=== PATIENT | female | born 1940 | race Caucasian/White ===

== ENCOUNTER → 2017-11-26 | Outpatient (CLI) | payer MEDICARE, OTHER ==
[2017-11-26 19:23] LABS: Adenovirus F 40/41 Not Detected (NOT DETECT); Astrovirus Not Detected (NOT DETECT); Campylobacter Sp Not Detected (NOT DETECT); Cryptosporidium Not Detected (NOT DETECT); Cyclospora Cayetanensis Not Detected (NOT DETECT); E. Coli O157 Not Detected (NOT DETECT); Entamoeba Histolytica Not Detected (NOT DETECT); Enteroaggregative E. coli-EAEC Not Detected (NOT DETECT); Enteropathogenic E. coli-EPEC Not Detected (NOT DETECT); Enterotoxigenic E. coli-ETEC Not Detected (NOT DETECT); Giardia Lamblia Not Detected (NOT DETECT); Norovirus GI/GII Not Detected (NOT DETECT); Plesiomonas Shigelloides Not Detected (NOT DETECT); Rotavirus A Not Detected (NOT DETECT); Salmonella Sp Not Detected (NOT DETECT); Sapovirus Not Detected (NOT DETECT); Shiga Toxin-prod E. coli-STEC Not Detected (NOT DETECT); Shigella/Enteroin E. coli-EIEC Not Detected (NOT DETECT); Vibrio Cholerae Not Detected (NOT DETECT); Vibrio Sp Not Detected (NOT DETECT); Yersinia Enterocolitica Not Detected (NOT DETECT)
== END ==
LOC: LAB 16:00
PROVIDERS: Nurse Practitioner
DX: R10.84 Generalized abdominal pain (principal)
CPT/HCPCS: 87507

== ENCOUNTER 2020-09-10 14:56 | Emergency (ER) | payer MEDICARE, OTHER ==
[~2020-09-10] VITALS: Ht 167.6 cm; Wt 92.1 kg
[2020-09-10] MEDS ORDERED: EUTHYROX150 MC1 PO (15:44)
[2020-09-10] MEDS ORDERED: Ventolin/Prove6.7 GM INH (15:44)
[2020-09-10] MEDS ORDERED: MONT10T PO (15:45)
[2020-09-10] MEDS ORDERED: FLUT.05NI (15:46)
[2020-09-10] MEDS ORDERED: OMEP20ER PO (15:46)
[2020-09-10] MEDS ORDERED: FUROSEMIDE40 MG PO (15:46)
[2020-09-10] MEDS ORDERED: K-Dur 20 meq T20 MEQ PO (15:47)
== END 2020-09-10 16:20 | disposition home or self-care (01) ==
LOC: ER 14:56
DX: R00.1 Bradycardia, unspecified (principal); J44.9 Chronic obstructive pulmonary disease, unspecified; E03.9 Hypothyroidism, unspecified; K21.9 Gastro-esophageal reflux disease without esophagitis; Z88.0 Allergy status to penicillin; Z79.899 Other long term (current) drug therapy
CPT/HCPCS: 93005; 93010; 99283-25; A9270

== ENCOUNTER 2020-12-03 15:35 | Emergency (ER) | payer OTHER ==
[~2020-12-03] VITALS: Ht 165.1 cm; Wt 93.0 kg
[~2020-12-03 15:35] MED LIST: EUTHYROX150 MC1 PO; FLUT.05NI; FUROSEMIDE40 MG PO; K-Dur 20 meq T20 MEQ PO; MONT10T PO; OMEP20ER PO; Ventolin/Prove6.7 GM INH
[2020-12-03 16:11] LABS: BASOPHILS ABSOLUTE AUTO 0.04 K/mm3 (0.00-0.23); BASOPHILS PERCENT AUTO 1 % (0-2); EOSINOPHILS ABSOLUTE AUTO 0.15 K/mm3 (0.00-0.68); EOSINOPHILS PERCENT AUTO 2 % (0-6); Hematocrit 39.4 % (33.0-51.0); Hemoglobin 13.1 g/dL (11.5-16.0); IMMATURE GRAN ABSOLUTE AUTO 0.02 K/mm3 (0.00-0.10); IMMATURE GRAN PERCENT AUTO 0 % (0-1); LYMPHOCYTES ABSOLUTE AUTO 3.33 K/mm3 (0.84-5.20); LYMPHOCYTES PERCENT AUTO 46 % (21-46); MONOCYTES ABSOLUTE AUTO 0.46 K/mm3 (0.16-1.47); MONOCYTES PERCENT AUTO 6 % (4-13); Mean Corpuscular HGB 35.2 pg (26.0-34.0); Mean Corpuscular HGB Conc 33.2 g/dL (31.5-36.5); Mean Corpuscular Volume 106 fL (80-100); Mean Platelet Volume 11.7 fL (9.1-12.4); NEUTROPHILS ABSOLUTE AUTO 3.32 K/mm3 (1.96-9.15); NEUTROPHILS PERCENT AUTO 45 % (41-73); NRBC ABSOLUTE 0.02 K/mm3 (0.00-0.02); NRBC Auto 0.3 /100 WBC (0.0-0.2); Platelet Count 176 K/mm3 (150-400); RDW Coefficient Variation 13.5 % (11.7-14.2); RDW Standard Deviation 52.5 fL (35.1-46.3); Red Blood Cell Count 3.72 M/mm3 (3.80-5.20); White Blood Cell Count 7.32 K/mm3 (4.00-11.30)
[2020-12-03 16:36] LABS: Alanine Aminotransfer (ALT/SGP 31 U/L (12-78); Albumin, Blood 3.6 g/dL (3.4-5.0); Alk Phos 88 U/L (50-136); Anion Gap 8 mmol/L (6-16); Aspartate Aminotrans (AST/SGOT 24 U/L (12-37); Bilirubin, Total 0.3 mg/dL (0.1-1.0); Blood Urea Nitrogen 32 mg/dL (8-24); Bun/Creatinine Ratio 24.6 (12.0-20.0); CO2, Blood 24 mmol/L (21-32); Chloride, Blood 112 mmol/L (98-108); Globulin, Blood 3.7 g/dL (2.2-4.0); Glomerular Filtration Rate 42 (60-); Glucose, Blood 93 mg/dL (70-99); Potassium, Blood 4.1 mmol/L (3.5-5.5); Sodium, Blood 144 mmol/L (136-145); Total Protein, Blood 7.3 g/dL (6.4-8.2); Troponin I <0.015 ng/mL (0.000-0.040)
[2021-01-22] MEDS ORDERED: Vitamin B-121000 MCG PO (13:17)
== END 2020-12-03 19:14 | disposition home or self-care (01) ==
LOC: ER 15:35
PROVIDERS: Physician Assistant
DX: I49.1 Atrial premature depolarization (principal); Z88.0 Allergy status to penicillin; Z79.899 Other long term (current) drug therapy; J44.9 Chronic obstructive pulmonary disease, unspecified
CPT/HCPCS: 36415; 71045; 80053; 84443; 84484; 85025; 93005; 93010; 99285-25

== ENCOUNTER 2021-01-23 11:46 | Day surgery (SDC) | payer OTHER ==
[~2021-01-23] VITALS: Ht 167.6 cm; Wt 102.0 kg
[~2021-01-23 11:46] MED LIST changes: +Vitamin B-121000 MCG PO
--- NOTE | 2021-01-23 19:28 | NUR ---
PT ARRIVED AT [facility] FROM [facility] [place], S/P DUAL CHAMBER PACER INSERTION. WOUND SITE IS C/D/I, PRESSURE DRESSING IN PLACE. NO SIGNS OF SWELLING OR DRAINAGE. ICE PACK APPLIED, SLING IN PLACE. PT REMINDED NOT TO LIFT LEFT ARM. ORIENTED TO ROOM, CALL LIGHT IN REACH. PRN MEDICATIONS GIVEN FOR PAIN CONTROL, AND SYSTOLIC BP >160, PER ORDERS. PT'S LAST BM 5. PT AMBULATES WITH SBA TO BATHROOM. A&O X4, LUNGS CLEAR TO AUSCULTATION, DIMINISHED IN LOWER LOBES BILAT. NIMO. CAP REFILL <3 SEC. SKIN IS COOL, DISCOLORED IN LEFT FOOT. IV IN LEFT AC, FLUSHED WITH NS. REPORT GIVEN TO GAS WELDING MACHINE OPERATOR NURSE, WILL CONTINUE TO MONITOR.
[2021-01-23] MEDS ORDERED: THERA-D2000 UNIT PO (19:55)
--- NOTE | 2021-01-24 05:24 | NUR ---
SHIFT SUMMARY PT A&OX4, PLEASANT. SP02>92% ON RA. TELEMETRY READS PACED, HR 70'S. PT IS POST PACER, ARM IN SLING, DRESSING C/D/I. PT BP ELEVATED THIS SHIFT, HYDRALAZINE GIVEN X1 PER EMAR. PT C/O OF 8/10 L CHEST/SHOULDER PAIN. MEDICATED W/ NORCO PER EMAR X2. PT C/O OF NOT BEING ABLE TO SLEEP. CALL PLACED TO MEC[facility] DOMINGUEZ. MECHE DOMINGUEZ W/ ORDERS FOR MELATONIN. PT TOOK MELATONIN, PT STATES SHE WAS ONLY ABLE TO SLEEP "ABOUT AN HOUR" DURING NIGHT. PT AMBULATED TO BATHROOM MULTIPLE TIMES DURING SHIFT W/ MINIMAL ASSISTANCE. CALL LIGHT IN REACH. WILL GIVE REPORT TO ONCOMING NURSE.
--- NOTE | 2021-01-24 07:50 | NUR ---
80 YO F PRESENTS IN BED, AWAKE, A&O X 4 S/P DUAL PACEMAKER INSERTION ON 01/23/21. C/O PAIN TO THE LEFT SHOULDER, ABOVE INSERTION SITE. SITE IS C/D/I WITH A PRESSURE DRESSING - NO SX OF SWELLING, REDNESS, BRUSIING. PAIN TREATED WITH PRN MEDICATION, PER ORDERS. PT'S BP IS <160, SO PRN BP MEDS ARE HELD PER MD ORDERS. PT ATTACHED TO TELEMETRY, PACED AT 65 BPM. PT IS ABLE TO AMBULATE TO THE BATHROOM TO VOID, WITH SBA. OXYGENTATION SATS >94% ON RA. SCD'S APPLIED FOR DVT PROPHYLAXIS WHILE IN BED. CALL LIGHT IS IN REACH OF PT, WILL CONTINUE TO MONITOR.
[2021-01-24] MEDS ORDERED: Norco 5-325 Ta1 EACH PO (12:07)
[2021-01-24] MEDS ORDERED: CLIN150 PO (12:09)
[2021-01-24] MEDS ORDERED: METO25 PO (13:32)
--- NOTE | 2021-01-24 14:46 | NUR ---
PHONE CALL WITH PHYSICIAN/ TELEPHONE ORDER READ BACK TELEPHONE CALL TO DR. PENA TO DISCUSS PT'S HISTORICAL BP TREND AT HOME. PT REPORTS THAT WHEN SHE MONITORS HER BP AT HOME, SHE TYPICALLY TRENDS IN THE 120'S FOR SYSTOLIC BP. UPDATED PHYSICIAN. PER DR. PENA, NEW ORDER - TAKE METOPROLOL 12.5 MG TWICE DAILY FOR THE NEXT THREE DAYS. HOLD FUROSEMIDE AT HOME FOR THE NEXT THREE DAYS, DUE TO ELEVATED CREATININE. AFTER RE-STARTING THE FUROSE MIDE, MONITOR BLOOD PRESSURE BEFORE TAKING METORPOLOL. HOLD METOPROLOL IF SYSTOLIC BP IS <[address] PENA, OK TO GIVE 12.5 MG METOPROLOL NOW BEFORE DISCHARGE.
--- NOTE | 2021-01-24 15:30 | NUR ---
PT DISCHARGED BY CARDIOLOGY. DRESSING CHANGED THIS MORNING PER DR. PEACOCK. IV DC'D INTACT. NEW MEDICATIONS STARTED INCLUDE METOPROLOL 12.[address] PENA, FIRST DOSE GIVEN NOW. PT EDUCATED ON DISCHARGE MEDICATIONS - TO MONITOR BLOOD PRESSURE AT HOME AND TO HOLD MEDICATION FOR SYSTOLIC BP <100 OR FEELINGS OF DIZZINESS/LIGHTHEADEDNESS. PT EDUCATED TO HOLD LASIX FOR THE NEXT THREE DAYS, TO RESUME ON 01/28/21. PT TO FOLLOW UP WITH PCP ON Tuesday01/26/21 AND KEEP CARDIOLOGY APPT WITH DR. DOHERTY, ALREADY SCHEDULED WITHIN THE WEEK. SPOUSE WAS GIVEN HARD COPY PRESCRIPTION OF [employer] SCRIPT. RN CALLED IN SCRIPTS TO [facility] FOR CLINDAMYCIN AND METOPROLOL. GIVEN WOUND CARE INSTRUCTIONS AND PACEMAKER FOLLOW UP CARE PER PRE-PRINTED HANDOUT. PT VERBALIZED UNDERSTANDING OF ALL INSTRUCTIONS, NO FURTHER QUESTIONS AT THIS TIME. PERSONAL BELONGINGS RETURNED TO PT. ESCORTED TO PERSONAL VEHICLE VIA WC BY SCREENER AND BLENDER AND SPOUSE.
== END 2021-01-24 15:45 | disposition home or self-care (01) ==
LOC: MHTC 11:46 → PCU 17:58 → MHTC 01-24 15:45 → PCU 01-24 15:45
DX: I49.5 Sick sinus syndrome (principal); I47.1 Supraventricular tachycardia; I44.2 Atrioventricular block, complete; E03.9 Hypothyroidism, unspecified; I12.9 Hypertensive chronic kidney disease with stage 1 through stage 4 chronic kidney disease, or unspecified chronic kidney disease; N18.9 Chronic kidney disease, unspecified; M54.5 Low back pain; G89.29 Other chronic pain; E66.9 Obesity, unspecified; Z87.891 Personal history of nicotine dependence; Z79.899 Other long term (current) drug therapy; Z88.0 Allergy status to penicillin; Z68.37 Body mass index [BMI] 37.0-37.9, adult
CPT/HCPCS: 33208; 71045; 71046; 76937; 93005; 93010; 94640; 94760; 99152; 99153; A9270; C1781; C1785; C1894; C1898; J0360; J1644; J2250; J3010; J3370; J7030; J7040

== ENCOUNTER → 2022-12-13 | Outpatient (CLI) | payer MEDICARE ==
[~2022-12-13] MED LIST changes: +CLIN150 PO; +METO25 PO; +Norco 5-325 Ta1 EACH PO; +THERA-D2000 UNIT PO
[2022-12-13 19:02] LABS: BASOPHILS ABSOLUTE AUTO 0.02 K/mm3 (0.00-0.23); BASOPHILS PERCENT AUTO 0 % (0-2); EOSINOPHILS ABSOLUTE AUTO 0.03 K/mm3 (0.00-0.68); EOSINOPHILS PERCENT AUTO 0 % (0-6); Hematocrit 42.5 % (33.0-51.0); Hemoglobin 13.8 g/dL (11.5-16.0); IMMATURE GRAN ABSOLUTE AUTO 0.05 K/mm3 (0.00-0.10); IMMATURE GRAN PERCENT AUTO 1 % (0-1); LYMPHOCYTES ABSOLUTE AUTO 3.33 K/mm3 (0.84-5.20); LYMPHOCYTES PERCENT AUTO 34 % (21-46); MONOCYTES ABSOLUTE AUTO 0.54 K/mm3 (0.16-1.47); MONOCYTES PERCENT AUTO 6 % (4-13); Mean Corpuscular HGB 34.2 pg (26.0-34.0); Mean Corpuscular HGB Conc 32.5 g/dL (31.5-36.5); Mean Corpuscular Volume 106 fL (80-100); Mean Platelet Volume 10.9 fL (9.1-12.4); NEUTROPHILS ABSOLUTE AUTO 5.81 K/mm3 (1.96-9.15); NEUTROPHILS PERCENT AUTO 60 % (41-73); Platelet Count 199 K/mm3 (150-400); RDW Coefficient Variation 12.8 % (11.7-14.2); RDW Standard Deviation 49.8 fL (35.1-46.3); Red Blood Cell Count 4.03 M/mm3 (3.80-5.20); White Blood Cell Count 9.78 K/mm3 (4.00-11.30)
[2022-12-13 19:15] LABS: U Amphetamine Screen Not Detected; U Barbituate Screen Not Detected; U Benzodiazapine Screen Not Detected; U Buprenorphine Screen Not Detected; U Cannabinoids Screen DETECTED; U Cocaine Screen Not Detected; U Methadone Screen Not Detected; U Methamphetamine Screen Not Detected; U Opiates Screen DETECTED; U Oxycodone Screen Not Detected; U Phencyclidine Screen Not Detected; U Propoxyphene Screen Not Detected
[2022-12-13 19:22] LABS: Free Thyroxine 1.7 ng/dL (0.70-1.60)
[2022-12-13 19:34] LABS: Albumin, Blood 4.1 g/dL (3.4-5.0); Albumin/Globulin Ratio 1.2 (0.8-1.8); Bilirubin, Total 0.4 mg/dL (0.1-1.0); Bun/Creatinine Ratio 35.8 (12.0-20.0); Calcium, Blood 9.1 mg/dL (8.5-10.1); Creatinine, Blood 1.79 mg/dL (0.40-1.00); Globulin, Blood 3.5 g/dL (2.2-4.0); Potassium, Blood 4.6 mmol/L (3.5-5.5); Thyroid Stimulating Hormone 0.073 uIU/mL (0.360-4.800); Total Protein, Blood 7.6 g/dL (6.4-8.2)
== END | disposition home or self-care (01) ==
LOC: LAB SHORT 16:19
PROVIDERS: Nurse Practitioner Family
DX: E03.9 Hypothyroidism, unspecified (principal); Z79.899 Other long term (current) drug therapy
CPT/HCPCS: 80053; 84439; 84443; 85025

== ENCOUNTER → 2023-04-11 | Outpatient (CLI) | payer OTHER ==
[2023-04-11 19:18] LABS: Free Thyroxine 1.41 ng/dL (0.70-1.60)
[2023-04-11 19:24] LABS: Bun/Creatinine Ratio 23.7 (12.0-20.0); Calcium, Blood 9.2 mg/dL (8.5-10.1); Creatinine, Blood 1.39 mg/dL (0.40-1.00); Potassium, Blood 3.5 mmol/L (3.5-5.5); Thyroid Stimulating Hormone 0.223 uIU/mL (0.360-4.800)
== END | disposition home or self-care (01) ==
LOC: LAB 14:00 → LAB SHORT 14:00
PROVIDERS: Nurse Practitioner Family
DX: E03.9 Hypothyroidism, unspecified (principal); N18.4 Chronic kidney disease, stage 4 (severe)
CPT/HCPCS: 80048; 84439; 84443

== ENCOUNTER → 2023-05-24 | Outpatient (CLI) | payer OTHER ==
[2023-05-24 18:14] LABS: Free Thyroxine 1.11 ng/dL (0.70-1.60)
[2023-05-24 18:17] LABS: Thyroid Stimulating Hormone 3.24 uIU/mL (0.360-4.800)
== END | disposition home or self-care (01) ==
LOC: LAB 14:40 → LAB SHORT 14:40
PROVIDERS: Nurse Practitioner Family
DX: E03.9 Hypothyroidism, unspecified (principal)
CPT/HCPCS: 84439; 84443

== ENCOUNTER → 2024-06-05 | Outpatient (CLI) | payer OTHER ==
[2024-06-05 16:52] LABS: Free Thyroxine 1.33 ng/dL (0.70-1.60); Thyroid Stimulating Hormone 0.964 uIU/mL (0.360-4.800)
== END ==
LOC: LAB SHORT 15:27 → LAB 15:27
PROVIDERS: Nurse Practitioner Family
DX: E03.9 Hypothyroidism, unspecified (principal)
CPT/HCPCS: 84439; 84443